=== PATIENT | female | born 1970 | race Hispanic/Latino ===

== ENCOUNTER 2023-08-28 17:40 | Emergency (ER) | payer OTHER, SELFPAY ==
--- OUTSIDE RECORDS SUMMARY | 2023-08-28 17:44 | XMS REPORT | Continuity of Care Document ---
Author Name Unknown Address [address] [facility] [address] Address [address] [facility] 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 Role Phone Unavailable Unavailable Unavailable Encounters Start Date/Time End Date/Time Encounter Type Admission Type Attending Clinicians [facility] Facility Care Department Encounter ID Source 2023-05-14 14:38:00 2023-05-14 14:38:00 Outpatient SFA SFA 30 Kenneth Prajapati 2023-01-13 13:22:36 2023-01-13 13:22:36 Outpatient SFA SFA [id number] Kenneth Prajapati 2023-01-11 14:37:45 2023-01-11 14:37:45 Outpatient SFA SFA [id number] Kenneth Prajapati 2022-11-28 11:28:34 2022-11-28 11:28:34 Outpatient SFA SFA 16 Kenneth Prajapati 2022-09-14 12:34:21 2022-09-14 12:34:21 Outpatient SFA SFA Kenneth Prajapati 2022-07-12 08:56:13 2022-07-12 08:56:13 Outpatient SFA SFA Kenneth Prajapati 2022-07-04 09:40:28 2022-07-04 09:40:28 Outpatient SFA SFA Kenneth Prajapati Results Test Description Test Time Test Comments Results Result Co mments Source COMPREHENSIVE METABOLIC [id number] 09:38:49* Test Item Value Reference Range Interpretation Comme nts GLUCOSE (test code = 2217) 205 MG/DL 70-99 H BUN (test code = 2208) 13 MG/DL 6-20 CREATININE (test code = 2213) 0.80 MG/DL 0.60-1.30 eGFR (2020 CKD-EPI) (test code = ) 89 ML/MIN/1.73 >60 CALC BUN/CREAT (test code = 2234) 16 RATIO 6-28 SODIUM (test code = 2230) 139 MEQ/L 133-146 POTASSIUM (test code = 2227) 4.2 MEQ/L 3.5-5.4 CHLORIDE (test code = 2214) 99 MEQ/L 95-107 CARBON DIOXIDE (test code = 2205) 26 MEQ/L 19-31 CALCIUM (test code = 2208) 9.5 MG/DL 8.5-10.5 PROTEIN, TOTAL (test code = 2228) 7.0 G/DL 6.1-8.3 ALBUMIN (test code = 2200) 4.1 G/DL 3.5-5.2 CALC GLOBULIN (test code = 2239) 2.9 G/DL 1.9-3.7 CALC A/G RATIO (test code = 2233) 1.4 RATIO 1.0-2.6 BILIRUBIN, TOTAL (test code = 2206) 0.3 MG/DL See_Comment [Automated me ssage] The system which generated this result transmitted reference range: <=1.2. The reference range was not used to interpret this result as normal/abnormal. ALKALINE PHOSPHATASE (test code = 2203) 61 U/L 40-132 AST (test code = 2217) 62 U/L 9-40 H ALT (test code = 2218) 40 U/L 5-40 LIPID [id number] 09:38:49* Test Item Value Reference Range Interpretation Comme nts CHOLESTEROL (test code = 2209) 190 MG/DL <200 TRIGLYCERIDES (test code = 2232) 151 MG/DL <150 H HDL CHOLESTEROL (test code = 222) 48 MG/DL >39 CALC LDL CHOL (test code = 2236) 116 MG/DL <100 H NOTE: CALCULATED LDL IS BASED ON LAKSHMI-HERNANDEZ METHOD WHICHINCLUDES ADJUSTABLE TRIGLYCERIDE:VLDL CHOLESTEROL RATIO.THIS FACTOR VARIES BY MEASURED TRIGLYCERIDE AND NON-HDLCHOLESTEROL CONCENTRATIONS WITH INCREASED CALCULATED LDL SEENIN HIGHER TRIGLYCERIDE OR LOWER NON-HDL SPECIMENS. FOR MOREINFORMATION, SEE CLIENT ANNOUNCEMENT AT [email or web address] RISK RATIO LDL/HDL (test code = 2238) 2.42 RATIO <3.22 HEMOGLOBIN [id number] 05:46:17* Test Item Value Reference Range Interpretation Comme nts HEMOGLOBIN A1c (test code = 38670) 8.7 % 4.2-5.6 H [employer] GUIDELINES FOR HGB A1C: PREDIABETES/INCREASED RISK . . . . . . . 5.7-6.4% DIAGNOSIS OF DIABETES . . . . . . . . . >=6.5% WITH CONFIRMATION OR APPROPRIATE SYMPTOMS NOTE: ASSAY MAY BE AFFECTED BY HEMOGLOBINOPATHIES (SICKLE CELL ANEMIA, S-C DISEASE, OTHERS) OR ARTIFICIALLY LOWERED BY DECREASED RED CELL SURVIVAL (HEMOLYTIC ANEMIAS, BLOOD LOSS, ETC.). CONSIDER ALTERNATE TESTING OR LABORATORY CONSULTATION. [facility] has important pathology staff changes effective 11/13/2022. New pathology staff will provide uninterrupted, excellent patient care and clinical consultation. See URL: [email or web address]. UNLESS OTHERWISE INDICATED, ALL TESTING PERFORMED AT [facility] [address] [place] [address] DOG WARDEN: BETSY WILSON M.D. CLIA NUMBER [id number] [facility] [place]. [id number] CBC W/AUTO DIFF WITH [id number] 05:09:43* Test Item Value Reference Range Interpretation Comme nts WBC (test code = 1001) 6.5 K/UL 3.5-11.0 RBC (test code = 1002) 4.11 M/UL 3.80-5.40 HEMOGLOBIN (test code = 1003) 10.7 G/DL 11.5-15.5 L HEMATOCRIT (test code = 1004) 33.4 % 34.0-45.0 L MCV (test code = 1005) 81.3 fL 80.0-99.0 MCH (test code = 1006) 26.0 PG 25.0-33.0 MCHC (test code = 1007) 32.0 G/DL 31.0-36.0 RDW (test code = 1038) 13.5 % 11.5-15.0 NEUTROPHILS (test code = 1008) 57.0 % LYMPHOCYTES (test code = 1010) 35.5 % MONOCYTES (test code = 1011) 4.4 % EOSINOPHILS (test code = 1012) 2.4 % BASOPHILS (test code = 1013) 0.5 % IMMATURE GRANULOCYTES (test code = 1036) 0.2 % NUCLEATED RBCS (test code = 1065) 0.0 /100 WBC'S See_Comment [Automated messa ge] The system which generated this result transmitted reference range: 0.0. The reference range was not used to interpret this result as normal/abnormal. PLATELET COUNT (test code = 1015) 238 K/UL 130-400 ABSOLUTE NEUTROPHILS (test code = 1066) 3.73 K/UL 1.50-7.50 ABSOLUTE LYMPHOCYTES (test code = 1067) 2.32 K/UL 1.00-4.00 ABSOLUTE MONOCYTES (test code = 1068) 0.29 K/UL 0.20-1.00 ABSOLUTE EOSINOPHILS (test code = 1040) 0.16 K/UL 0.00-0.50 ABSOLUTE BASOPHILS (test code = 1069) 0.03 K/UL 0.00-0.20 ABS IMMATURE GRANULOCYTES (test code = 1020) 0.01 K/UL 0.00-0.10 ABS NUCLEATED RBCS (test code = 75404) 0.00 K/UL 0.00-0.11 HEMOGLOBIN [id number] 02:49:27* Test Item Value Reference Range Interpretation Comme [facility] HEMOGLOBIN A1c (test code = 55385) 8.3 % 4.2-5.6 H [employer]IATION GUIDELINES FOR HGB A1C: PREDIABETES/INCREASED RISK . . . . . . . 5.7-6.4% DIAGNOSIS OF DIABETES . . . . . . . . . >=6.5% WITH CONFIRMATION OR APPROPRIATE SYMPTOMS NOTE: ASSAY MAY BE AFFECTED BY HEMOGLOBINOPATHIES (SICKLE CELL ANEMIA, S-C DISEASE, OTHERS) OR ARTIFICIALLY LOWERED BY DECREASED RED CELL SURVIVAL (HEMOLYTIC ANEMIAS, BLOOD LOSS, ETC.). CONSIDER ALTERNATE TESTING OR LABORATORY CONSULTATION. UNLESS OTHERWISE INDICATED, ALL TESTING PERFORMED [facility] [address] [place] [address] DOG WARDEN: ROGE MOYA M.D. IA NUMBER [id number] [facility] [place]. [id number] HEMOGLOBIN [id number] 09:46:09* Test Item Value Reference Range Interpretation Comme [facility] HEMOGLOBIN A1c (test code = 45918) 8.7 % 4.2-5.6 H [employer]IATION GUIDELINES FOR HGB A1C: PREDIABETES/INCREASED RISK . . . . . . . 5.7-6.4% DIAGNOSIS OF DIABETES . . . . . . . . . >=6.5% WITH CONFIRMATION OR APPROPRIATE SYMPTOMS NOTE: ASSAY MAY BE AFFECTED BY HEMOGLOBINOPATHIES (SICKLE CELL ANEMIA, S-C DISEASE, OTHERS) OR ARTIFICIALLY LOWERED BY DECREASED RED CELL SURVIVAL (HEMOLYTIC ANEMIAS, BLOOD LOSS, ETC.). CONSIDER ALTERNATE TESTING OR LABORATORY CONSULTATION. LIPID [id number] 05:38:57* Test Item Value Reference Range Interpretation Comme nts CHOLESTEROL (test code = 2210) 196 MG/DL <200 TRIGLYCERIDES (test code = 2231) 129 MG/DL <150 HDL CHOLESTEROL (test code = 2219) 47 MG/DL >39 CALC LDL CHOL (test code = 7) 125 MG/DL <100 H NOTE: CALCULATED LDL IS BASED ON LAKSHMI-HERNANDEZ METHOD WHICHINCLUDES ADJUSTABLE TRIGLYCERIDE:VLDL CHOLESTEROL RATIO.THIS FACTOR VARIES BY MEASURED TRIGLYCERIDE AND NON-HDLCHOLESTEROL CONCENTRATIONS WITH INCREASED CALCULATED LDL SEENIN HIGHER TRIGLYCERIDE OR LOWER NON-HDL SPECIMENS. FOR MOREINFORMATION, SEE CLIENT ANNOUNCEMENT AT [email or web address] /[email or web address] RISK RATIO LDL/HDL (test code = 8) 2.66 RATIO <3.22 COMPREHENSIVE METABOLIC [id number] 05:38:57* Test Item Value Reference Range Interpretation Comme nts GLUCOSE (test code = 7) 195 MG/DL 70-99 H BUN (test code = 2207) 17 MG/DL 6-20 CREATININE (test code = 2214) 0.89 MG/DL 0.60-1.30 eGFR (2020 CKD-EPI) (test code = 61589) 78 ML/MIN/1.73 >60 CALC BUN/CREAT (test code = 2235) 19 RATIO 6-28 SODIUM (test code = 223) 143 MEQ/L 133-146 POTASSIUM (test code = 2228) 4.3 MEQ/L 3.5-5.4 CHLORIDE (test code = 2215) 103 MEQ/L 95-107 CARBON DIOXIDE (test code = 6) 27 MEQ/L 19-31 CALCIUM (test code = 220) 10.0 MG/DL 8.5-10.5 PROTEIN, TOTAL (test code = 2229) 7.4 G/DL 6.1-8.3 ALBUMIN (test code = 2201) 4.2 G/DL 3.5-5.2 CALC GLOBULIN (test code = 2240) 3.2 G/DL 1.9-3.7 CALC A/G RATIO (test code = 2234) 1.3 RATIO 1.0-2.6 BILIRUBIN, TOTAL (test code = 2207) 0.4 MG/DL See_Comment [Automated me ssage] The system which generated this result transmitted reference range: <=1.2. The reference range was not used to interpret this result as normal/abnormal. ALKALINE PHOSPHATASE (test code = 220) 62 U/L 40-130 AST (test code = 2218) 54 U/L 9-40 H ALT (test code = 2219) 37 U/L 5-40 UNLESS OTHERWISE INDICATED, ALL TESTING PERFORMED [facility] [address] [place] [address] DOG WARDEN: ROGE MOYA M.D. CLIA NUMBER [id number] [place]. [id number] HCV RNA, PCR [id number] 19:15:24* Test Item Value Reference Range Interpretation Comme nts HCV RNA, PCR QUANT (test code = 4571) NOT DETEC IU/ML HCV VIRAL LOG (test code = 66133) NOT DETEC LOG IU/ML Range of quantitatio n is 15-100,000,000 IU/mL, (1.176-8.000 logIU/mL). Samples with HCV RNA detected below the limit ofquantitation are reported as <15 IU/mL. Assay methodology ispolymerase chain reaction (PCR) using the Mauricio Tres 6800/8800system. The expected range is NOT DETECTED. UNLESS OTHERWISE INDICATED, ALL TESTING PERFORMED [facility] [address] [place] [address] DOG WARDEN: ROGE MOYA M.D. CLIA NUMBER [id number] [place]. [id number] HEPATITIS PANEL, [id number] 03:43:11* Test Item Value Reference Range Interpretation Comme nts HEPATITIS A IgM (test code = 16479) NON-REACTIVE NON-REACTIVE HEPATITIS B CORE IgM (test code = 4644) NON-REACTIVE NON-REACTIVE HEPATITIS B SURF AG (test code = 2739) NON-REACTIVE NON-REACTIVE HEPATITIS C ANTIBODY (test code = 4675) REACTIVE NON-REACTIVE A INTERPRETATION HEPATITIS A: (test code = 2552) (NOTE) Hepatitis A sero logy shows no evidence of acute hepatitis A. INTERPRETATION HEPATITIS B: (test code = 82563) (NOTE) Hepatitis B sero logy shows no evidence of acute hepatitis B andno indication of exposure to hepatitis B virus in the previous jesica eight months. INTERPRETATION HEPATITIS C: (test code = 97081) (NOTE) Hepatitis C sero logy is consistent with exposure to hepatitis Cvirus. The CDC recommends performing a supplemental confirmatory teston initial positive hepatitis C antibody tests. HCV PCR quantitativecan be used to confirm these results on a new sample (See MMWR, 2003;52 RR-3). UNLESS OTHERWISE INDICATED, ALL TESTING PERFORMED [facility] [address] [place] [address] DOG WARDEN: ROGE MOYA M.D. IA NUMBER [id number] [facility] [place]. [id number] HEMOGLOBIN [id number] 10:35:01* Test Item Value Reference Range Interpretation Comme nts HEMOGLOBIN A1c (test code = 56731) 8.8 % 4.2-5.6 H [employer]AB[employer] S ASSOCIATION GUIDELINES FOR HGB A1C: PREDIABETES/INCREASED RISK . . . . . . . 5.7-6.4% DIAGNOSIS OF DIABETES . . . . . . . . . >=6.5% WITH CONFIRMATION OR APPROPRIATE SYMPTOMS NOTE: ASSAY MAY BE AFFECTED BY HEMOGLOBINOPATHIES (SICKLE CELL ANEMIA, S-C DISEASE, OTHERS) OR ARTIFICIALLY LOWERED BY DECREASED RED CELL SURVIVAL (HEMOLYTIC ANEMIAS, BLOOD LOSS, ETC.). CONSIDER ALTERNATE TESTING OR LABORATORY CONSULTATION. CBC W/AUTO DIFF WITH [id number] 09:22:39* Test Item Value Reference Range Interpretation Comme nts WBC (test code = 1001) 6.3 K/UL 3.5-11.0 RBC (test code = 1002) 4.24 M/UL 3.80-5.40 HEMOGLOBIN (test code = 1003) 11.2 G/DL 11.5-15.5 L HEMATOCRIT (test code = 1004) 34.7 % 34.0-45.0 MCV (test code = 1005) 81.8 fL 80.0-99.0 MCH (test code = 1006) 26.4 PG 25.0-33.0 MCHC (test code = 1007) 32.3 G/DL 31.0-36.0 RDW (test code = 1038) 13.7 % 11.5-15.0 NEUTROPHILS (test code = 1008) 58.8 % LYMPHOCYTES (test code = 1010) 32.6 % MONOCYTES (test code = 1011) 5.4 % EOSINOPHILS (test code = 1012) 2.1 % BASOPHILS (test code = 1013) 0.8 % IMMATURE GRANULOCYTES (test code = 1036) 0.3 % NUCLEATED RBCS (test code = 1065) 0.0 /100 WBC'S See_Comment [Automated messa ge] The system which generated this result transmitted reference range: 0.0. The reference range was not used to interpret this result as normal/abnormal. PLATELET COUNT (test code = 1015) 248 K/UL 130-400 ABSOLUTE NEUTROPHILS (test code = 1066) 3.73 K/UL 1.50-7.50 ABSOLUTE LYMPHOCYTES (test code = 1067) 2.07 K/UL 1.00-4.00 ABSOLUTE MONOCYTES (test code = 1068) 0.34 K/UL 0.20-1.00 ABSOLUTE EOSINOPHILS (test code = 1040) 0.13 K/UL 0.00-0.50 ABSOLUTE BASOPHILS (test code = 1069) 0.05 K/UL 0.00-0.20 ABS IMMATURE GRANULOCYTES (test code = 1020) 0.02 K/UL 0.00-0.10 ABS NUCLEATED RBCS (test code = 21375) 0.00 K/UL 0.00-0.11 TSH, THIRD [id number] 06:46:33* Test Item Value Reference Range Interpretation Comme nts TSH, THIRD GENERATION (test code = 2821) 3.460 UIU/ML 0.400-4.100 UNLESS OTHERWISE INDICATED, ALL TESTING PERFORMED [facility] [address] [place] [address] DOG WARDEN: ROGE MOYA M.D. CLIA NUMBER [id number] [facility] [place]. [id number] COMPREHENSIVE METABOLIC [id number] 03:38:50* Test Item Value Reference Range Interpretation Comme nts GLUCOSE (test code = 2216) 328 MG/DL 70-99 H BUN (test code = 2207) 15 MG/DL 6-20 CREATININE (test code = 2213) 0.86 MG/DL 0.60-1.30 eGFR (2020 CKD-EPI) (test code = 72111) 82 ML/MIN/1.73 >60 CALC BUN/CREAT (test code = 2234) 17 RATIO 6-28 SODIUM (test code = 2230) 139 MEQ/L 133-146 POTASSIUM (test code = 2227) 4.9 MEQ/L 3.5-5.4 CHLORIDE (test code = 2214) 100 MEQ/L 95-107 CARBON DIOXIDE (test code = 2205) 28 MEQ/L 19-31 CALCIUM (test code = 2208) 9.4 MG/DL 8.5-10.5 PROTEIN, TOTAL (test code = 2228) 7.4 G/DL 6.1-8.3 ALBUMIN (test code = 2200) 4.2 G/DL 3.5-5.2 CALC GLOBULIN (test code = 2239) 3.2 G/DL 1.9-3.7 CALC A/G RATIO (test code = 2233) 1.3 RATIO 1.0-2.6 BILIRUBIN, TOTAL (test code = 2206) 0.3 MG/DL See_Comment [Automated me ssage] The system which generated this result transmitted reference range: <=1.2. The reference range was not used to interpret this result as normal/abnormal. ALKALINE PHOSPHATASE (test code = 2203) 70 U/L 40-130 AST (test code = 2217) 106 U/L 9-40 H ALT (test code = 221) 58 U/L 5-40 H LIPID [id number] 03:38:50* Test Item Value Reference Range Interpretation Comme nts CHOLESTEROL (test code = 0) 185 MG/DL <200 TRIGLYCERIDES (test code = 223) 208 MG/DL <150 H HDL CHOLESTEROL (test code = 2219) 37 MG/DL >39 L CALC LDL CHOL (test code = 2236) 116 MG/DL <100 H NOTE: CALCULATED LDL IS BASED ON LAKSHMI-HERNANDEZ METHOD WHICHINCLUDES ADJUSTABLE TRIGLYCERIDE:VLDL CHOLESTEROL RATIO.THIS FACTOR VARIES BY MEASURED TRIGLYCERIDE AND NON-HDLCHOLESTEROL CONCENTRATIONS WITH INCREASED CALCULATED LDL SEENIN HIGHER TRIGLYCERIDE OR LOWER NON-HDL SPECIMENS. FOR MOREINFORMATION, SEE CLIENT ANNOUNCEMENT AT [email or web address] /[email or web address] RISK RATIO LDL/HDL (test code = 2238) 3.14 RATIO <3.22
--- NOTE | 2023-08-28 19:49 | RAD REPORT ---
EXAM DESCRIPTION: CT - Head Brain Wo Cont - 08/28/2023 7:36 pm CLINICAL HISTORY: Headache COMPARISON: none TECHNIQUE: Computed axial tomography of the head was obtained. IV contrast was not requested. All CT scans are performed using dose optimization technique as appropriate and may include automated exposure control or mA/KV adjustment according to patient size. FINDINGS: An intracranial bleed is not seen The ventricles are normal in caliber No significant hypodense areas within the brain visualized No extra-axial fluid collection is noted. Fluid within the sinuses/ mastoids is not seen IMPRESSION: No acute intracranial abnormality is seen If patient's symptoms persist MRI of the brain would be recommended
[2023-08-28 20:16] LABS: Specific Gravity 1.026 (1.005-1.030)
[2023-08-28 20:17] LABS: Absolute Lymphocytes (CBC) 4.1 K/uL (0.7-4.9); Hematocrit 34.7 % (36.0-45.0); Lymphocytes % 40.4 % (15.3-44.8); MCV 78.8 fL (80-100); MPV 8.7 fL (7.6-11.3); Platelets 276 thou/uL (152-406)
[2023-08-28 20:19] LABS: Specific Gravity 1.026 (1.005-1.030); Urine Bacteria <20 /HPF (<20); Urine Bilirubin NEGATIVE (Negative); Urine Blood Negative (Negative); Urine Clarity Turbid (Clear); Urine Color Yellow (Yellow); Urine Glucose 3+ (Negative); Urine Mucus 2+ /HPF (None Seen); Urine Protein TRACE (Negative); Urine RBC <5 /HPF (None Seen); Urine Urobilinogen Normal (Normal); Urine pH 5.5 (5.0-7.0)
[2023-08-28] MEDS ORDERED: METOCLOPRAMIDE 10 MG/2mL INJ ONE (20:25)
[2023-08-28] MEDS ORDERED: KETOROLAC 30 MG/ML INJ ONE (20:25)
[2023-08-28] MEDS ORDERED: DIPHENHYDRAMINE 50 MG/ML VIAL ONE (20:25)
[2023-08-28] MEDS ORDERED: NA CHLORIDE 0.9% 1,000 ML ONE (20:26)
[2023-08-28 20:34] LABS: Albumin 3.3 g/dL (3.4-5.0); Bilirubin Total 0.3 mg/dL (0.2-1.0); Potassium 3.4 mEq/L (3.5-5.1); Protein, Total 7.5 g/dL (6.4-8.2)
--- NOTE | 2023-08-28 21:32 | EDPHYS ---
Physician Documentation [facility] Name: Sosa House Age: 52 yrs Sex: Female : 1970 Arrival Date: 08/28/2023 Time: 17:40 Bed DX1 Private MD: ED Physician Giancarlo Iyer HPI: 08/28 19:15 This 52 yrs old Female presents to ER via Ambulatory with complaints of cp Congestion, Runny Nose, Headache. 19:15 The patient complains of pain to the general. Onset: The symptoms/episode cp began/occurred 1 week(s) ago. Associated signs and symptoms: Pertinent positives: congestion, rhinorrhea times 3 days. Headache History: The patient has had previous headaches and this one is more severe than previous episodes. 19:15 Severity of symptoms: in the emergency department the pain a " 8" out of "10". cp Historical: - Allergies: 18:47 No Known Allergies; nj1 - PMHx: 18:47 breast cancer; diabetes mellitus; Hypertensive disorder; nj1 - PSHx: 18:47 left lumpectomy-2016; mastectomy-2016; nj1 - Immunization history:: Client reports receiving the 2nd dose of the Covid vaccine. - Social history:: Smoking status: Patient denies any tobacco usage or history of. ROS: 19:20 Eyes: Negative for injury, pain, redness, and discharge, cp 19:20 Constitutional: Negative for fever, poor PO intake, 19:20 ENT: Positive for rhinorrhea, sinus congestion, sore throat, Negative for drainage from ear(s), ear pain, difficulty swallowing, difficulty handling secretions, 19:20 Neck: Negative for pain with movement, pain at rest, stiffness, 19:20 Respiratory: Negative for cough, shortness of breath, wheezing, 19:20 Abdomen/GI: Negative for abdominal pain, vomiting, diarrhea, constipation, 19:20 Skin: Negative for rash, 19:20 Neuro: Positive for headache, Negative for altered mental status, dizziness, numbness, syncope, weakness, 19:20 All other systems are negative, Exam: 19:25 Constitutional: The patient appears in no acute distress, alert, awake, non-toxic, well cp developed, well nourished, 19:25 Head/Face: Normocephalic, atraumatic. cp 19:25 Eyes: Periorbital structures: appear normal, Conjunctiva: normal, no exudate, no injection, Sclera: no appreciated abnormality, Lids and lashes: appear normal, bilaterally, 19:25 ENT: External ear(s): are unremarkable, Ear canal(s): are normal, clear, TM's: cp dullness, bilaterally, Nose: is normal, Mouth: Lips: moist, Oral mucosa: pink and intact, moist, Posterior pharynx: Airway: no evidence of obstruction, patent, Tonsils: no enlargement, no exudate, erythema, is not appreciated, exudate, is not appreciated, 19:25 Neck: ROM/movement: is normal, is supple, no meningismus, no nuchal rigidity, 19:25 Chest/axilla: Inspection: normal, Palpation: is normal, no crepitus, no tenderness, 19:25 Cardiovascular: Rate: normal, Rhythm: regular, 19:25 Respiratory: the patient does not display signs of respiratory distress, Respirations: cp normal, no use of accessory muscles, no retractions, labored breathing, is not present, Breath sounds: decreased breath sounds, are not appreciated, stridor, is not appreciated, + upper airway congestion. 19:25 Abdomen/GI: Inspection: abdomen appears normal, Palpation: abdomen is soft and non-tender, in all quadrants, 19:25 Skin: no rash present. 19:25 Neuro: Orientation: to person, place \\T\\ time. Mentation: is normal, Vital Signs: 18:44 BP 158 / 77; Pulse 79; Resp 16; Temp 98.2(O); Pulse Ox 97% ; Weight 122.47 kg; Height 5 nj1 ft. 0 in. ; Pain 9/10; 18:44 Body Mass Index 52.73 (122.47 kg, 152.4 cm) nj1 18:44 Pain Scale: Adult nj1 [place] Coma Score: 20:32 Eye Response: spontaneous(4). Motor Response: obeys commands(6). Verbal Response: km8 oriented(5). Total: 15. MDM: 18:48 Patient medically screened. cp 21:31 Data reviewed: vital signs, nurses notes, lab test result(s), radiologic studies, CT cp scan, and as a result, I will discharge patient. 21:31 Differential diagnosis: viral Infection, bacterial infection, bronchitis, UTI. cp 12/14 19:05 Order name: CBC with Diff; Complete Time: 20:56 cp 08/28 20:56 Interpretation: Normal except: HGB 11.3; HCT 34.7; MCV 78.8; MCH 25.7. cp 08/28 19:05 Order name: CMP; Complete Time: 20:56 cp 08/28 20:57 Interpretation: Normal except: K 3.4; GLUC 285; CRE 1.20; GFR 54; ALB 3.3; GLOB 4.2; cp A/G 0.8. 08/28 19:05 Order name: Urinalysis w/ reflexes; Complete Time: 20:56 cp 08/28 20:57 Interpretation: Normal except: [facility] Turbid; UGLUC 3+; UPROT TRACE. cp 08/28 19:05 Order name: PREGU; Complete Time: 20:56 cp 08/28 19:05 Order name: CT Head Brain wo Cont; Complete Time: 19:58 cp 08/28 19:58 Interpretation: Report reviewed. 08/28 19:05 Order name: IV Saline Lock; Complete Time: 20:07 cp 08/28 19:05 Order name: Labs collected and sent; Complete Time: 20:07 cp Administered Medications: 20:36 Drug: Ketorolac IVP 15 mg IVP once Route: IVP; Site: right antecubital; [facility] [place]:21 Follow up: Response: No adverse reaction 20:36 Drug: NS 0.9% IV 1000 ml IV at 1 bolus Per protocol; 1000 mL bolus Route: IV; Rate: 1 km8 bolus; Site: right antecubital; 21:21 Follow up: IV Status: Completed infusion; IV Intake: 1000ml 20:36 Drug: metoCLOPramide IVP 10 mg IVP once; over 1 to 2 minutes Route: IVP; Site: right 8 antecubital; 21:21 Follow up: Response: No adverse reaction 20:36 Drug: diphenhydrAMINE IVP 25 mg IVP once Route: IVP; Site: right antecubital; km 21:21 Follow up: Response: No adverse reaction km8 Disposition Summary: 08/28/23 21:32 Discharge Ordered Notes: Location: Home cp Problem: new cp Symptoms: have improved cp Condition: Stable cp Diagnosis - Headache cp - Diabetes mellitus due to underlying condition with hyperglycemia cp Followup: cp - With: Private Physician - When: 2 - 3 days - Reason: Recheck today's complaints Discharge Instructions: - Discharge Summary Sheet cp - General Headache Without Cause cp - Hyperglycemia cp - Daily Diabetes Mellitus Record cp - Blood Glucose Monitoring, Adult cp - Diabetes Mellitus and Nutrition, Adult cp Forms: - Medication Reconciliation Form cp - Thank You Letter cp - Antibiotic Education cp - Prescription Opioid Use cp - Patient Portal Instructions cp - Leadership Thank You Letter cp Prescriptions: - Fioricet 50-300-40 mg Oral capsule - take 1 capsule ORAL route every 6 hours; 20 capsule; Refills: 0, Product cp Selection Permitted - Reglan 10 mg Oral Tablet - take 1 tablet ORAL route every 6 hours take 30 minutes before meals and at cp bedtime; 20 tablet; Refills: 0, Product Selection Permitted Signatures: Dispatcher [employer] EDMS Giancarlo Yeager PA PA cp Praveena Hebert RN RN nj1 Radha Mathis RN RN km8 Corrections: (The following items were deleted from the chart) 08/29 17:10 17:06 ENT: Positive for rhinorrhea, sinus congestion, sore throat, Negative for cp drainage from ear(s), ear pain, difficulty swallowing, difficulty handling secretions, cp 17:10 17:06 Respiratory: Negative for cough, shortness of breath, wheezing, cp cp 17:10 17:06 Abdomen/GI: Negative for abdominal pain, vomiting, diarrhea, constipation, cp cp 17:10 17:06 Constitutional: Negative for fever, poor PO intake, cp cp 17:10 17:06 Neck: Negative for pain with movement, pain at rest, stiffness, cp cp 17:10 17:06 Eyes: Negative for injury, pain, redness, and discharge, cp cp 17:10 17:06 Neuro: Positive for headache, Negative for altered mental status, dizziness, cp numbness, syncope, weakness, cp 17:10 17:06 Skin: Negative for rash, cp cp 17:10 17:06 All other systems are negative, cp cp
--- NOTE | 2023-08-28 21:32 | ER ---
Nurse's Notes [facility] Name: [facility] Age: 52 yrs Sex: Female : 1970 Arrival Date: 08/28/2023 Time: 17:40 Bed DX1 Private MD: Diagnosis: Headache;Diabetes mellitus due to underlying condition with hyperglycemia Presentation: 08/28 18:44 Chief complaint: Patient states: Congestion, runny nose and headache for 3 days, not nj1 getting better. Denies fever, vomiting, diarrhea. Coronavirus screen: Vaccine status: Patient reports receiving the 2nd dose of the covid vaccine. Ebola Screen: Patient denies travel to an Ebola-affected area in the 21 days before illness onset. Initial Sepsis Screen: Does the patient meet any 2 criteria? No. Patient's initial sepsis screen is negative. Does the patient have a suspected source of infection? No. Patient's initial sepsis screen is negative. Risk Assessment: Do you want to hurt yourself or someone else? Patient reports no desire to harm self or others. Onset of symptoms was August 25, 2023. 18:44 Method Of Arrival: Ambulatory [facility] [place] 18:44 Acuity: TACO 3 nj1 Historical: - Allergies: 18:47 No Known Allergies; nj1 - PMHx: 18:47 breast cancer; diabetes mellitus; Hypertensive disorder; nj1 - PSHx: 18:47 left lumpectomy-2015; mastectomy-2016; nj1 - Immunization history:: Client reports receiving the 2nd dose of the Covid vaccine. - Social history:: Smoking status: Patient denies any tobacco usage or history of. Screenin:32 [facility] ED Fall Risk Assessment (Adult) History of falling in the last 3 months, km8 including since admission No falls in past 3 months (0 pts) Confusion or Disorientation No (0 pts) Intoxicated or Sedated No (0 pts) Impaired Gait No (0 pts) Mobility Assist Device Used No (0 pt) Altered Elimination No (0 pt) Score/Fall Risk Level 0 - 2 = Low Risk Oriented to surroundings, Maintained a safe environment, Educated pt \T\ family on fall prevention, incl call for assistance when getting out of bed, Assessed \T\ reinforced patient's understanding of fall precautions. Abuse screen: Denies threats or abuse. Denies injuries from another. Nutritional screening: No deficits noted. Tuberculosis screening: No symptoms or risk factors identified. Assessment: 20:32 General: Appears in no apparent distress. uncomfortable, Behavior is calm, cooperative, km8 appropriate for age, pt sitting in chair; no distress at this time. Pain: Complains of pain in head Pain currently is 9 out of 10 on a pain scale. Quality of pain is described as aching. Neuro: Level of Consciousness is awake, alert, obeys commands, Oriented to person, place, time, situation, Reports headache. Cardiovascular: Denies chest pain, shortness of breath, Capillary refill < 3 seconds Patient's skin is warm and dry. Respiratory: Reports cough that is Airway is patent Respiratory effort is even, unlabored, Respiratory pattern is regular, symmetrical, Breath sounds are clear bilaterally. GI: No signs and/or symptoms were reported involving the gastrointestinal system. : No signs and/or symptoms were reported regarding the genitourinary system. EENT: No signs and/or symptoms were reported regarding the EENT system. Derm: No signs and/or symptoms reported regarding the dermatologic system. Skin is intact, Skin is dry, Skin is normal, Skin temperature is warm. Musculoskeletal: No signs and/or symptoms reported regarding the musculoskeletal system. Range of motion: intact in all extremities. 21:21 Reassessment: Patient appears in no apparent distress at this time. Patient and/or km8 family updated on plan of care and expected duration. Pain level reassessed. Patient is alert, oriented x 3, equal unlabored respirations, skin warm/dry/pink. Patient states feeling better. Patient states symptoms have improved. Vital Signs: 18:44 BP 158 / 77; Pulse 79; Resp 16; Temp 98.2(O); Pulse Ox 97% ; Weight 122.47 kg; Height 5 nj1 ft. 0 in. ; Pain 9/10; 18:44 Body Mass Index 52.73 (122.47 kg, 152.4 cm) nj1 18:44 Pain Scale: Adult nj1 Mcgregor Coma Score: 20:32 Eye Response: spontaneous(4). Motor Response: obeys commands(6). Verbal Response: km8 oriented(5). Total: 15. ED Course: 17:42 Patient arrived in ED. im 17:57 Giancarlo Yeager PA is PHCP. cp 17:57 Giancarlo Iyer MD is Attending Physician. cp 18:47 Triage completed. nj1 18:47 Arm band placed on right wrist. nj1 19:38 CT Head Brain wo Cont In Process Unspecified. EDMS 20:07 CBC with Diff Sent. km8 20:07 CMP Sent. km8 20:07 Urinalysis w/ reflexes Sent. km8 20:07 PREGU Sent. km8 20:07 Inserted saline lock: 20 gauge in right antecubital area, using aseptic technique. km8 Blood collected. 20:32 Patient has correct armband on for positive identification. Warm blanket given. km8 20:32 No provider procedures requiring assistance completed. Patient maintains SpO2 km8 saturation greater than 95% on room air. 21:43 IV discontinued, intact, bleeding controlled, No redness/swelling at site. Pressure jb4 dressing applied. Administered Medications: 20:36 Drug: Ketorolac IVP 15 mg IVP once Route: IVP; Site: right antecubital; km8 21:21 Follow up: Response: No adverse reaction km8 20:36 Drug: NS 0.9% IV 1000 ml IV at 1 bolus Per protocol; 1000 mL bolus Route: IV; Rate: 1 km8 bolus; Site: right antecubital; 21:21 Follow up: IV Status: Completed infusion; IV Intake: 1000ml km8 20:36 Drug: metoCLOPramide IVP 10 mg IVP once; over 1 to 2 minutes Route: IVP; Site: right 8 antecubital; 21:21 Follow up: Response: No adverse reaction km8 20:36 Drug: diphenhydrAMINE IVP 25 mg IVP once Route: IVP; Site: right antecubital; km8 21:21 Follow up: Response: No adverse reaction km8 Medication: 20:32 VIS not applicable for this client. km8 Intake: 21:21 IV: 1000ml; Total: 1000ml. km8 Outcome: 21:32 Discharge ordered by . cp 21:43 Discharged to home ambulatory, with family, amanda 21:43 Condition: stable 21:43 Discharge instructions given to patient, Instructed on discharge instructions, follow up and referral plans. medication usage, Demonstrated understanding of instructions, follow-up care, medications, Prescriptions given X 2, 21:44 Patient left the ED. jb4 Signatures: Dispatcher [employer] EDFL Giancarlo Yeager PA PA cp Bryson, James, RN RN jb4 Praveena Hebert RN RN nj1 Kalyn Gill Katie RN RN km8 Corrections: (The following items were deleted from the chart) 20:34 20:32 General: Appears in no apparent distress. uncomfortable, Behavior is calm, km8 cooperative, appropriate for age, km8
[2023-08-28 22:22] VITALS: BP 158/77; TEMP 98.2; O2SAT 97
== END 2023-08-28 21:44 | disposition home or self-care (01) ==
LOC: ER 17:40
DX: R51.9 Headache, unspecified (principal); E11.65 Type 2 diabetes mellitus with hyperglycemia
CPT/HCPCS: 36415; 70450; 80053; 81001; 81025; 85025; 96361; 96374; 96375; 99285; J1200; J2765; J7030

== ENCOUNTER 2025-06-16 12:35 | Day surgery (SDC) | payer BC ==
[2025-06-13 14:05] LABS: Absolute Lymphocytes (CBC) 2.0 K/uL (0.7-4.9); Hematocrit 36.3 % (36.0-45.0); Hemoglobin 11.8 g/dL (12.0-15.0); MCH 25.3 pg (27.0-35.0); MCHC 32.7 g/dL (32.0-36.0); MCV 77.4 fL (80-100); MPV 8.2 fL (7.6-11.3); Nucleated RBC Absolute Count 0.0 (0-0); Nucleated Red Blood Cells % 0.0 % (0-0); RBC Red Blood Cell Count 4.68 M/uL (3.86-4.86); White Blood Count 6.60 thou/uL (4.3-10.9)
[2025-06-13 14:22] LABS: Anion Gap 7.4 mEq/L (5.0-15.0); BUN Blood Urea Nitrogen 14.0 mg/dL (7-18); Glucose Level 108.0 mg/dL (74-106); Potassium 3.4 mEq/L (3.5-5.1)
[2025-06-16] MEDS: NA CHLORIDE 0.9% 1,000 ML ONE (13:15)
[2025-06-16 13:26] VITALS: BP 151/69; TEMP 98.3; O2SAT 97
[2025-06-16] MEDS ORDERED: LIDOCAINE HCL/EPINEPHRINE 20 ML MDV ONE (13:31)
[2025-06-16 14:47] LABS: Urine Specific Gravity/Preg 1.020 (1.005-1.030)
== END 2025-06-16 14:10 | disposition home or self-care (01) ==
LOC: OR 12:35
PROVIDERS: ATTEND Obstetrics & Gynecology
DX: N95.0 Postmenopausal bleeding (principal); D25.9 Leiomyoma of uterus, unspecified; Z53.09 Procedure and treatment not carried out because of other contraindication
CPT/HCPCS: 93005; 85025; 80048; 36415; 81025; 82947; J7030

== ENCOUNTER 2025-06-28 11:27 | Day surgery (SDC) | payer BC ==
[2025-06-28] MEDS ORDERED: FENTANYL CITR 100 MCG/2 ML ONE (12:05)
[2025-06-28] MEDS ORDERED: ONDANSETRON 4 MG/2 ML VIAL ONE (12:05)
[2025-06-28] MEDS ORDERED: LIDOCAINE 2% MPF 5 ML VIAL ONE (12:06)
[2025-06-28] MEDS ORDERED: ROCURONIUM 50 MG/5 ML VIAL IV ONE (12:06)
[2025-06-28] MEDS ORDERED: MIDAZOLAM HCL 2 MG/2 ML INJ ONE (12:06)
[2025-06-28] MEDS: NA CHLORIDE 0.9% 1,000 ML ONE (12:15)
[2025-06-28] MEDS: SCOPOLAMINE HYDROBROMIDE PATCH TD ONE (12:16)
[2025-06-28] MEDS ORDERED: SUCCINYLCHOLINE 20 MG/ML (10 ML) IV ONE (12:21)
[2025-06-28 15:08] VITALS: BP 117/68; TEMP 97.2; O2SAT 98
--- NOTE | 2025-06-28 16:32 | OP ---
Date of Procedure: 06/28/2025 Surgeon: Brianna Crump MD Graphic Engineer: No assistant child care teacher. Preoperative Diagnoses: Postmenopausal bleeding, endometrial polyp, and leiomyoma. Postoperative Diagnoses: Postmenopausal bleeding, endometrial polyp, and leiomyoma, and type 2 leiom yoma. Procedures Performed: Operative hysteroscopy, polypectomy, myomectomy, D and C. Anesthesia: General anesthesia with endotracheal intubation. Complications: No complications. Drains: No Drains. Specimens: Endometrial curettings, polyp, and myoma. Findings: Fundal large polyp that could not be removed with a MyoSure Lite and needed an XL and the left lateral wall type 2 myoma was mostly shaved from the uterine wall making it flushed with the end ometrial canal. Endometrial curettings were performed at the end of the procedure in the other parts of the endometri um. Estimated Blood Loss: Minimal. Condition: The patient's condition stable. Indications: The patient is a 54-year-old with postmenopausal bleeding. She had a transvaginal ultr asound, which showed thickened endometrium. Diagnostic hysteroscopy in the office revealed a large u terine polyp as well as the left lateral wall type 2 leiomyoma. So, the patient was counseled that t he endometrial polyp had to be removed in complete for adequate sampling and that we will also remove the myoma and curette the endometrium for sampling to rule out endometrial atypia or malignancy or l eiomyosarcoma. Description Of Procedure: The patient was re-consented in the preoperative area. She was taken back to the OR and placed in supine fashion on the operating table after general anesthesia was given. A fter general anesthesia was given, she was placed in a dorsal lithotomy position using Severino stirrups . Lower abdomen, vulva, vagina, and perineum were prepped and draped in a sterile fashion. Speculum placed to expose the cervix. Anterior lip was grasped with single-tooth tenaculum. The bivalve spe culum was switched to a Ramirez speculum. Then cervix was dilated to 16-Romanian. The XL operative hyste roscope was primed and inserted through the cervical canal directly under visualization into the uter ine cavity. The polyp and the myoma were noted and the XL polypectomy myomectomy device was inserted . Then, the polyp was first excised. The Lite excision device did not work as the polyp was too thi ck for it and so the XL device was able to completely remove the polyp and then shave the myoma. End ometrial curettings were performed. After this device was removed with the endometrial 0 curette on the posterior wall, in the right lateral wall, as well as, the anterior wall. All the samples were s ent off for permanent pathology. Instruments were removed. Instruments, needles, and sponge counts were correct at the end of the case. The patient tolerated the procedure well. She was recovered fr om anesthesia and taken to PACU in stable condition. EBL was minimal. Plan to follow up in 1 week f or pathology results and then a definitive plan. debriefed about the procedure and findings today. BERTRAM/PEGGY Voice ID: [id number] Report ID: [id number]
== END 2025-06-28 15:14 | disposition home or self-care (01) ==
LOC: OR 11:27
PROVIDERS: ATTEND Obstetrics & Gynecology
PROC: 0UDB8ZX Extraction of Endometrium, Via Natural or Artificial Opening Endoscopic, Diagnostic (ICD-10-PCS; principal; 2025-06-28 12:00)
DX: N95.0 Postmenopausal bleeding (principal); D25.9 Leiomyoma of uterus, unspecified; N84.0 Polyp of corpus uteri; I10 Essential (primary) hypertension; E66.9 Obesity, unspecified; F41.9 Anxiety disorder, unspecified
CPT/HCPCS: 82947; 88305; J0330; J2003; J2250; J2405; J2704; J3010; J7030